=== PATIENT | female | born 1955 | race Caucasian/White ===

== ENCOUNTER 2021-02-13 16:39 | Emergency (ER) | payer OTHER, MEDICARE ==
[~2021-02-13] VITALS: Ht 157.5 cm; Wt 56.7 kg
[~2021-02-13 16:39] MED LIST: ACETAMINOPHEN325 M1 PO; AMBIEN 5 MG TABL5 MG PO; ANUSOL1 EACH RC; BENAZEPRIL-HCT1 EA11 PO; CITRATE OF MAG296 ML PO; COLACE100 MG PO; COUMADIN 2.5MG2.5 M1 PO; NORCO 5-325 TA1 EACH PO; NORVASC 5 MG TAB5 MG PO; OMEPRAZOLE20 M2 PO
[2021-02-13 16:43] VITALS: BP 137/79
[2021-02-13] MEDS ORDERED: DOXYCYCLINE 10100 MG PO (17:05)
== END 2021-02-13 17:13 | disposition home or self-care (01) ==
LOC: ER 16:39
DX: L03.115 Cellulitis of right lower limb (principal); I10 Essential (primary) hypertension; K21.9 Gastro-esophageal reflux disease without esophagitis; Z79.899 Other long term (current) drug therapy; Z88.5 Allergy status to narcotic agent

== ENCOUNTER 2021-04-19 17:15 | Emergency (ER) | payer OTHER, MEDICARE ==
[~2021-04-19] VITALS: Ht 157.5 cm; Wt 56.7 kg
[2021-04-19 17:15] VITALS: BP 129/78
[~2021-04-19 17:15] MED LIST changes: +DOXYCYCLINE 10100 MG PO
== END 2021-04-19 18:16 | disposition home or self-care (01) ==
LOC: ER 17:15
DX: L02.215 Cutaneous abscess of perineum (principal); Z48.01 Encounter for change or removal of surgical wound dressing; I10 Essential (primary) hypertension; K21.9 Gastro-esophageal reflux disease without esophagitis; Z86.73 Personal history of transient ischemic attack (TIA), and cerebral infarction without residual deficits; Z79.899 Other long term (current) drug therapy; Z79.2 Long term (current) use of antibiotics; Z79.01 Long term (current) use of anticoagulants; Z88.5 Allergy status to narcotic agent